=== PATIENT | female | born 1935 | race Caucasian/White ===

== ENCOUNTER 2016-11-18 22:01 | Inpatient (IN) ==
[2016-11-19] MEDS ORDERED: Naloxone 0.4 MG/ML INJ IVP PRN (01:30)
[2016-11-19] MEDS ORDERED: Acetaminophen 325 MG TABLET PO PRN (01:30)
--- NOTE | 2016-11-19 01:30 | Internal Med History&Physical ---
Date of Encounter: 11/19/16 Time of Encounter: 01:00 Assessment and Plan (1) Hypernatremia Current visit: Yes Status: Acute Patient hypernatremia with serum sodium at 161. Calculated fluid deficit 4.5 L. Likely patient hypernatremia acute in nature due to patient decreased by mouth, last known sodium was normal, in August. Continue D5-0.45 at 75 ml/hr We will recheck sodium at 4 AM with a history (2) Altered mental status Current visit: No Status: Acute Patient found with altered mental status at long term earlier today. She was sent in and the hyponatremia was found. Supposedly, patient having decreased by mouth over last several days. Unclear as to why. We will check chest x-ray for possible source of infection UA negative for infection Qualifiers: Altered mental status type: delirium Qualified Code(s): R41.0 - Disorientation, unspecified (3) Dementia Current visit: No Status: Chronic Patient has advanced, chronic dementia leaving her advanced alert and oriented to self only. Patient on medications to assist with mood stabilization. Patient dementia likely contributing to her decreased desire for by mouth input , dehydration and hyponatremia. Continue home medications We will consult social sciences research scientist for assistance with placement We will consult PT/OT Plan as above Qualifiers: Dementia type: Alzheimer's disease Alzheimer's disease onset: unspecified onset Dementia behavioral disturbance: without behavioral disturbance Qualified Code(s): G30.9 - Alzheimer's disease, unspecified; F02.80 - Dementia in other diseases classified elsewhere without behavioral disturbance (4) Hypertension Current visit: No Status: Acute Patient blood pressure since admission has been normal. We will hold patient hydrochlorothiazide due to concerns of dehydration and hyponatremia Qualifiers: Hypertension type: essential hypertension Qualified Code(s): I10 - Essential (primary) hypertension (5) Hypothyroidism Current visit: Yes Status: Acute Patient has history of hypothyroidism, is on 75 g Synthroid daily. We will continue daily Synthroid We will check TSH Qualifiers: Hypothyroidism type: unspecified Qualified Code(s): E03.9 - Hypothyroidism , unspecified (6) DVT prophylaxis Current visit: Yes Status: Acute We will start 5000 units heparin subcutaneous 3 times a day Internal Medicine - H&P: HPI Chief complaint: AMS Admitted From: Long-term Nursing Facility Plans for Post Hospital Care: Transfer Residential Care History of present illness: Ms. Jean is a 81 year old female with medical history significant for advanced dementia, hypertension, hyperlipidemia, hypothyroidism, and previous TIA was found at her long term necessity to have altered mental status is sent to the [place] emergency department. She is found to have a sodium of 161 and sent to [facility]. Patient has advanced dementia and is only oriented to self at this time, she is unable to answer questions appropriately, so history obtained through document review. His report the patient has been having decreased by mouth at the long term which she resides , and has been having even less than usual the last couple days. She was found to have highly elevated serum sodium, with most recent check showing normal levels. Her serum and urine Josiah were elevated and on physical exam she appeared dehydrated with increased skin turgor and dry mucous membranes. Both her BUN and serum creatinine are elevated, but with BUN being disproportionately elevated compared to her serum creatinine is suggestive of dehydration, likely due to decreased by mouth. Past Med Surg Social Fam HX - Past Medical History Medical history: dementia, hyperlipidemia, hypertension, thyroid disease, TIA, other Psychiatric history: no psych history - Past Surgical History Surgical History: no surgical history - Social History Smoking Status: Never smoker Smokeless Tobacco Status: No Alcohol use: none Drug use: none - Family History Daughter Adopted: No Living Status: Still Living Hx Family Cancer: Yes (Daughter had cancer, treated with chemotherapy and radiation, metastatic to) Mother Living Status: Father Living Status: Internal Medicine - H&P: Meds Hydrochlorothiazide 12.5 mg PO DAILY 06/06/16 [History] Levothyroxine [Synthroid] 75 mcg PO 0630 06/06/16 [History] Loratadine [Claritin] 10 mg PO DAILY 06/06/16 [History] Aspirin [Lo-Dose Aspirin EC] 81 mg PO DAILY 08/04/16 [History] Mirtazapine [Remeron] 7.5 mg PO HS 08/04/16 [History] Potassium Chloride [Klor-Con 10] 20 meq PO DAILY 08/04/16 [History] Atorvastatin [Lipitor] 10 mg PO HS 11/19/16 [History] Dextromethorphan HBr/Quinidine [Nuedexta 20-10 mg Capsule] 1 each PO BID [History] Divalproex Sodium [Depakote Sprinkle] 125 mg PO HS 11/19/16 [History] Sennosides/Docusate Sodium [Senna-S Tablet] 1 each PO BID 11/19/16 [History] Allergies No Known Allergies Allergy (Verified 08/25/16 22:00) ROS unobtainable: due to mental status - Constitutional Vitals: Temp Pulse Resp BP Pulse Ox 98.3 F 70 18 120/71 98 11/18/16 22:27 11/18/16 22:27 11/18/16 22:27 11/18/16 22:27 11/18/16 22:27 Exam: General: Cooperative, pleasant, no acute distress, alert and oriented 1, answers questions inappropriately Head: Normocephalic, atraumatic Eye: Conjunctiva pink, sclera anicteric, EOMI, PERRL Neck: Supple, trachea midline, mucous membranes dry Respiratory: No accessory muscle usage, clear to auscultation bilaterally, no wheezes/rhonchi/rales appreciated Cardiovascular: Regular rate and rhythm, S1 and S2 present, no murmurs/rubs/ gallops/clicks appreciated GI/abdominal: Nondistended, nontender, soft, normal bowel sounds, no peritoneal signs Extremities: No calf tenderness, noncyanotic, no pedal edema appreciated, warm, lower extremity pulses palpable and symmetrical, Neurological: Alert and oriented 3, no facial droop, no focal deficits Skin: Dry, intact, normal color, increased skin turgor observed
[2016-11-19] MEDS ORDERED: *HR* Heparin 5,000 UNIT/ML VIAL SQ SCH (06:00)
[2016-11-19 07:30] LABS: Basophils # 0.1 K/mcL (0.0-0.2); Basophils % 0.8 %; Eosinophils # 0.2 K/mcL (0.0-0.6); Eosinophils % 2.9 %; Hematocrit 45.4 % (35.3-44.9); Immature Granulocytes % 0.4 % (0-4); Lymphocytes # 1.9 K/mcL (0.6-4.6); Lymphocytes % 23.8 %; Mean Corpuscular Hemoglobin 30.4 pg (28.0-33.3); Mean Corpuscular Volume 92.1 fL (83.0-100.0); Mean Platelet Volume 10.6 fL (9.4-12.4); Monocytes # 0.8 K/mcL (0.0-1.3); Monocytes % 9.6 %; Neutrophils # 4.9 K/mcL (1.6-8.9); Platelet Count 209 K/mcL (140-400); Red Blood Count 4.93 M/mcL (3.82-4.97); Red Cell Distribution Width 15.4 % (11.5-14.5); Segmented Neutrophils % 62.5 %
[2016-11-19 07:52] LABS: BUN/Creatinine Ratio 41 (6-26); Blood Urea Nitrogen 43 mg/dL (7-20); Carbon Dioxide 29 mEq/L (19-29); Chloride 120 mEq/L (98-109); Glucose 99 mg/dL (70-99); Osmolality,Calculated 333 (280-300); Potassium 3.2 mEq/L (3.5-4.5); Sodium 156 mEq/L (136-145); eGFR For African Americans > 60 (> 60); eGFR For Non-African Americans 51 (> 60)
[2016-11-19 08:14] LABS: Thyroid Stimulating Hormone 1.784 mcIU/mL (0.350-4.840)
[2016-11-19] MEDS: D5% in 0.45% NACL 1,000 ML IVC SCH ×2 (08:55→16:00)
[2016-11-19] MEDS: Loratadine 10 MG TABLET PO SCH (09:38)
[2016-11-19] MEDS: Aspirin Enteric Coated 81 MG Tablet PO SCH (09:38)
[2016-11-19] MEDS: Sennosides/Docusate Sodium TABLET PO SCH ×2 (09:39→20:28)
[2016-11-19] MEDS: Potassium Chloride Elixir 20 MEQ/15 ML UDC PO SCH (09:56)
[2016-11-19] MEDS ORDERED: NUEDEXTA PO SCH (13:19)
--- NOTE | 2016-11-19 15:06 | Event Note ---
Date of Encounter: 11/19/16 Time of Encounter: 15:01 Patient admitted for severe dehydration secondary to advanced dementia and her oral intake. Sodium noted to be 161 yesterday. Patient started on D5 half normal, repeat Chem-7 today shows sodium of 156. at the bedside, patient laying in bed in no acute distress,The reports that she does eat well at the [facility]. she is currently DNR-CCA will monitor for oral intake, nutrition consult. however, if her nutrition does not improve given her advanced dementia, this may be a recurrent problem. This was explained to the and he verbalized understanding.
[2016-11-19] MEDS: *HR* Heparin 5,000 UNIT/ML VIAL SQ SCH (16:59)
[2016-11-19] MEDS: Mirtazapine 15 MG TABLET PO SCH (20:27)
[2016-11-19] MEDS: Divalproex Sodium 125 MG CAPSULE PO SCH (20:27)
[2016-11-20] MEDS: NUEDEXTA PO SCH ×3 (01:19→23:43)
[2016-11-20] MEDS: *HR* Heparin 5,000 UNIT/ML VIAL SQ SCH ×2 (06:33→18:01)
[2016-11-20 06:44] LABS: Basophils # 0.1 K/mcL (0.0-0.2); Eosinophils # 0.4 K/mcL (0.0-0.6); Eosinophils % 4.8 %; Hematocrit 41.9 % (35.3-44.9); Hemoglobin 14.2 g/dL (11.5-15.4); Immature Granulocytes % 0.4 % (0-4); Lymphocytes # 1.9 K/mcL (0.6-4.6); Lymphocytes % 25.6 %; Mean Corpuscular HGB Conc 33.9 g/dL (31.6-35.5); Mean Corpuscular Hemoglobin 30.5 pg (28.0-33.3); Mean Corpuscular Volume 89.9 fL (83.0-100.0); Mean Platelet Volume 10.5 fL (9.4-12.4); Monocytes # 0.5 K/mcL (0.0-1.3); Monocytes % 6.6 %; Neutrophils # 4.4 K/mcL (1.6-8.9); Platelet Count 199 K/mcL (140-400); Red Blood Count 4.66 M/mcL (3.82-4.97); Red Cell Distribution Width 14.9 % (11.5-14.5); Segmented Neutrophils % 61.6 %
[2016-11-20 06:54] LABS: BUN/Creatinine Ratio 34 (6-26); Calcium 8.6 mg/dL (8.6-10.8); Carbon Dioxide 26 mEq/L (19-29); Chloride 117 mEq/L (98-109); Glucose 99 mg/dL (70-99); Osmolality,Calculated 313 (280-300); Potassium 3.7 mEq/L (3.5-4.5); Sodium 149 mEq/L (136-145); eGFR For African Americans > 60 (> 60); eGFR For Non-African Americans > 60 (> 60)
[2016-11-20 06:56] LABS: Blood Urea Nitrogen 27 mg/dL (7-20)
[2016-11-20] MEDS: Loratadine 10 MG TABLET PO SCH (09:26)
[2016-11-20] MEDS: Aspirin Enteric Coated 81 MG Tablet PO SCH (09:26)
[2016-11-20] MEDS: Sennosides/Docusate Sodium TABLET PO SCH ×2 (09:26→23:42)
[2016-11-20] MEDS: Potassium Chloride Elixir 20 MEQ/15 ML UDC PO SCH (09:26)
[2016-11-20] MEDS: D5% in 0.45% NACL 1,000 ML IVC SCH (14:12)
--- NOTE | 2016-11-20 16:32 | Internal Med Progress Note ---
Date of Encounter: 11/19/16 Time of Encounter: 16:29 - Assessment and plan (1) Altered mental status Current Visit: No Status: Acute Assessment and plan: resolved now. 2/2 hypernatremia from dehydration patinet at baseline. Qualifiers: Altered mental status type: delirium Qualified Code(s): R41.0 - Disorientation, unspecified (2) Dementia Current Visit: No Status: Chronic Assessment and plan: advanced dementia. poor oral intake, does take liquid with some ensure but spits out most of the food. DNR-CCA , will discuss feeding options with the , needs nutritional assesment. Qualifiers: Dementia type: Alzheimer's disease Alzheimer's disease onset: unspecified onset Dementia behavioral disturbance: without behavioral disturbance Qualified Code(s): G30.9 - Alzheimer's disease, unspecified; F02.80 - Dementia in other diseases classified elsewhere without behavioral disturbance (3) Hypernatremia Current Visit: Yes Status: Acute Assessment and plan: better today, NA at 149, will continue IV fluids with D5 half normal. Repeat Chem-7 tomorrow, clinically better. - Time Spent With Patient 25 - 35 minutes - Subjective Interval history: Patient seen at the bedside. Appears more alert and awake today. Denies any complaints. Poor oral intake. - Constitutional Vitals: Temp Pulse Resp BP Pulse Ox 97.8 F 65 16 110/66 110 H 11/20/16 14:53 11/20/16 14:53 11/20/16 14:53 11/20/16 14:53 11/20/16 14:53 General appearance: Present: A&O X 1, no acute distress Exam: Neck supple. Chest bilateral clear, no added sounds. CVS S1 and S2, no murmurs rubs or gallops. Abdomen soft, nontender, bowel sounds are present. Extremities no edema. neuro- alert and awake but oriented only to person, no focal neuro defecits Internal Medicine: Result - Labs CBC & Chem 7: 11/20/16 06:35 11/20/16 06:35 Labs: Short CBC 11/20/16 Range/Units 06:35 WBC 7.2 (4.3-11.1) K/mcL Hgb 14.2 (11.5-15.4) g/dL Hct 41.9 (35.3-44.9) % Plt Count 199 (140-400) K/mcL Neutrophils # 4.4 (1.6-8.9) K/mcL BMP 11/20/16 06:35 Sodium 149 H Potassium 3.7 Chloride 117 H Carbon Dioxide 26 BUN 27 H D Creatinine 0.79 Glucose 99 Calcium 8.6 Consult Discharge Plan - Plan Referrals: Meredith Cruz MD [Primary Care Provider] - (web request sent on 11/19/16)
[2016-11-20] MEDS: Divalproex Sodium 125 MG CAPSULE PO SCH (23:43)
[2016-11-20] MEDS: Mirtazapine 15 MG TABLET PO SCH (23:43)
[2016-11-21] MEDS: *HR* Heparin 5,000 UNIT/ML VIAL SQ SCH (07:21)
[2016-11-21 08:25] LABS: Basophils # 0.1 K/mcL (0.0-0.2); Basophils % 0.8 %; Eosinophils # 0.3 K/mcL (0.0-0.6); Hematocrit 44.8 % (35.3-44.9); Immature Granulocytes % 0.4 % (0-4); Lymphocytes # 1.7 K/mcL (0.6-4.6); Lymphocytes % 19.9 %; Mean Corpuscular HGB Conc 33.5 g/dL (31.6-35.5); Mean Corpuscular Hemoglobin 29.6 pg (28.0-33.3); Mean Corpuscular Volume 88.5 fL (83.0-100.0); Mean Platelet Volume 10.5 fL (9.4-12.4); Monocytes # 0.7 K/mcL (0.0-1.3); Monocytes % 8.2 %; Neutrophils # 5.7 K/mcL (1.6-8.9); Platelet Count 236 K/mcL (140-400); Red Blood Count 5.06 M/mcL (3.82-4.97); Red Cell Distribution Width 14.4 % (11.5-14.5); Segmented Neutrophils % 67.7 %
[2016-11-21 08:37] LABS: BUN/Creatinine Ratio 17 (6-26); Blood Urea Nitrogen 13 mg/dL (7-20); Calcium 8.7 mg/dL (8.6-10.8); Carbon Dioxide 20 mEq/L (19-29); Chloride 113 mEq/L (98-109); Glucose 99 mg/dL (70-99); Osmolality,Calculated 296 (280-300); Potassium 3.8 mEq/L (3.5-4.5); Sodium 143 mEq/L (136-145); eGFR For African Americans > 60 (> 60); eGFR For Non-African Americans > 60 (> 60)
[2016-11-21] MEDS: D5% in 0.45% NACL 1,000 ML IVC SCH (09:40)
[2016-11-21] MEDS: NUEDEXTA PO SCH (09:41)
[2016-11-21] MEDS: Sennosides/Docusate Sodium TABLET PO SCH (09:43)
[2016-11-21] MEDS: Potassium Chloride Elixir 20 MEQ/15 ML UDC PO SCH (09:43)
[2016-11-21] MEDS: Loratadine 10 MG TABLET PO SCH (09:43)
[2016-11-21] MEDS: Aspirin Enteric Coated 81 MG Tablet PO SCH (09:44)
[2016-11-21 11:08] VITALS: BP 130/80
--- NOTE | 2016-11-21 12:41 | Discharge Summary ---
Date of Encounter: 11/19/16 Time of Encounter: 12:39 - Discharge Diagnosis (1) Altered mental status Priority: Primary Status: Resolved Qualifiers: Altered mental status type: delirium Qualified Code(s): R41.0 - Disorientation, unspecified (2) Dementia Priority: Secondary Status: Chronic Qualifiers: Dementia type: Alzheimer's disease Alzheimer's disease onset: unspecified onset Dementia behavioral disturbance: without behavioral disturbance Qualified Code(s): G30.9 - Alzheimer's disease, unspecified; F02.80 - Dementia in other diseases classified elsewhere without behavioral disturbance (3) Hypernatremia Priority: Primary Status: Acute - Discharge Medications Home Medications: Levothyroxine [Synthroid] 75 mcg PO 0630 06/06/16 [History] Loratadine [Claritin] 10 mg PO DAILY 06/06/16 [History] Aspirin [Lo-Dose Aspirin EC] 81 mg PO DAILY 08/04/16 [History] Mirtazapine [Remeron] 7.5 mg PO HS 08/04/16 [History] Atorvastatin [Lipitor] 10 mg PO HS 11/19/16 [History] Dextromethorphan HBr/Quinidine [Nuedexta 20-10 mg Capsule] 1 each PO BID [History] Divalproex Sodium [Depakote Sprinkle] 125 mg PO HS 11/19/16 [History] Sennosides/Docusate Sodium [Senna-S Tablet] 1 each PO BID 11/19/16 [History] Allergies/Adverse Reactions: Allergies No Known Allergies Allergy (Verified 08/25/16 22:00) Date of admission: 11/18/16 23:48 Primary care physician: Meredith Cruz, Consults: 11/18/16 23:50 Consult to [employer] [CONS] Routine Reason for SW Consult: discharge planning, from [facility] 11/19/16 01:33 Consult to Occupational Therapy [CONS] Routine Comment: Evaluate, develop and implement POC Consult to Physical Therapy [CONS] Routine Comment: Evaluate, develop and implement POC 11/20/16 16:34 Consult to Nutrition [CONS] Routine Comment: Consulting Provider: NUTRITION Reason for Dietary Consult: Other Discharging clinician: Sage Hammond Anticipated date of discharge: 11/21/16 - Patient Status Disposition: Transfer SNF Condition: Fair Functional capacity at discharge: bed bound Overall status at discharge: patient is back to baseline - Discharge Instructions Follow Up With: Meredith Cruz MD [Primary Care Provider] - (web request sent on 11/19/16) - Diet and Activity Activity: as per physical therapy Diet: other (dietary supplement with ensure and vanilla milk), regular diet Interval History: Patient admitted for severe dehydration secondary to advanced dementia and poor oral intake. Sodium noted to be 161 on admission. Patient started on D5 half normal, repeat Chem-7 today showed gradual imporvemnt of sodium. at the bedside, patient laying in bed in no acute distress,The reports that she does [facility] well at the [facility]. she is currently DNR-CCA she was monitored and noted that she became more alert and awake adn started taking orally once her mental status improved after her sodium levels normalzed. she is being discharged back to the [facility] today, the sodium level at the time of discharge is 143. Hospital course: Ms. Jean is a 81 year old female Time spent discussing smoking cessation with patient: more than 10 minutes - Time Spent with Patient Total time spent providing and/or coordinating discharge services: Greater than 30 minutes - Constitutional Vitals: Temp Pulse Resp BP Pulse Ox 98.0 F 72 18 130/80 97 11/21/16 11:07 11/21/16 11:07 11/21/16 11:07 11/21/16 11:07 11/21/16 11:07 General appearance: Present: A&O X 1, no acute distress Exam: Head: Normocephalic, atraumatic Eye: Conjunctiva pink, sclera anicteric, EOMI, PERRL Neck: Supple, trachea midline, mucous membranes moist Respiratory: No accessory muscle usage, clear to auscultation bilaterally, no wheezes/rhonchi/rales appreciated Cardiovascular: Regular rate and rhythm, S1 and S2 present, no murmurs/rubs/ gallops/clicks appreciated GI/abdominal: Nondistended, nontender, soft, normal bowel sounds, no peritoneal signs Extremities: No calf tenderness, noncyanotic, no pedal edema appreciated, warm, lower extremity pulses palpable and symmetrical, Neurological: Alert and oriented 1, no facial droop, no focal deficits Skin: Dry, intact, normal color.
--- NOTE | 2016-11-21 12:43 | Physician Discharge Referral ---
ExtendedCare Referral Info Transfer To: [facility] Provider in Charge: jorge a villalobos Institutional Level of Care: Intermediate - MR - Diagnosis (1) Altered mental status Status: Resolved (2) Dementia Status: Chronic (3) Hypernatremia Status: Acute - Transfer Medications Home Medications: Levothyroxine [Synthroid] 75 mcg PO 0630 06/06/16 [History] Loratadine [Claritin] 10 mg PO DAILY 06/06/16 [History] Aspirin [Lo-Dose Aspirin EC] 81 mg PO DAILY 08/04/16 [History] Mirtazapine [Remeron] 7.5 mg PO HS 08/04/16 [History] Atorvastatin [Lipitor] 10 mg PO HS 11/19/16 [History] Dextromethorphan HBr/Quinidine [Nuedexta 20-10 mg Capsule] 1 each PO BID [History] Divalproex Sodium [Depakote Sprinkle] 125 mg PO HS 11/19/16 [History] Sennosides/Docusate Sodium [Senna-S Tablet] 1 each PO BID 11/19/16 [History] Allergies/Adverse Reactions: Allergies No Known Allergies Allergy (Verified 08/25/16 22:00) - Respiratory Orders Smoking Cessation: Smoking cessation has been advised. For more information, call the [employer] Tobacco Quit Line at 2-444-USCSNOW. - Advance Directives Code Status: DNR-Arrest - Mobility Orders Chair - Rehabiliation Orders Rehab Potential: Poor Rehab Orders: Evaluation for Physical Therapy, Evaluation for Occupational Therapy - Treatments Skin tear care topically daily PRN per policy - Diet Orders Regular House Supplement per Dietary: ensure with vanilla milk CERTIFICATION: I certify that the transfer of the above named patient to an Extended Care Facility is necessary for the continuing treatment of the diagnosis listed. The above information is true and accurate reflection of patient's current condition. Confidential - Redisclosure prohibited without a patient's written consent.
== END 2016-11-21 14:14 | DRG 641 ==
LOC: 2ANU → SUATTDRO 23:48
PROVIDERS: ADMIT Internal Medicine; ATTEND Internal Medicine Endocrinology, Diabetes & Metabolism